=== PATIENT | female | born 1960 | race Caucasian/White ===

== ENCOUNTER 2016-06-16 18:00 | Emergency (ER) | payer OTHER ==
--- NOTE | 2016-06-16 20:28 | DIAGNOSTIC IMAGING REPORT ---
PROCEDURE: ABDOMEN/PELVIS WITH CONTRAST CLINICAL INDICATION: ABDOMINAL PAIN TECHNIQUE: 125 ml of Isovue 300 were injected intravenously and axial images were obtained of the abdomen and pelvis with sagittal and coronal reformations. COMPARISON: None. FINDINGS: ABDOMEN: Clear lung bases. Normal sized heart. No hiatal hernia. There are a few subcapsular scattered hepatic cysts. Largest measures 13.5 mm and is adjacent to the gallbladder. The liver, gallbladder, adrenal glands, kidneys, pancreas and spleen are normal. The abdominal aorta is normal in its course and caliber. No atherosclerosis. There are no suspicious calcifications, retroperitoneal adenopathy or masses. The stomach, upper small bowel loops, and mesentery are normal. Intact anterior abdominal wall. There is inflamed, impacted diverticulum in the mid descending colon. The adjacent left pericolic gutter fascia is thickened and there is adjacent fat stranding. No extraluminal gas or focal fluid collection. PELVIS: The appendix and pelvic small bowel loops are normal. There is an anastomotic staple line in the mid sigmoid of a prior partial sigmoidectomy. Decreased amount of semisolid stool present in the proximal colon. The uterus is surgically absent. The urinary bladder, and pelvic vessels are normal. No adenopathy, free fluid, or pelvic mass. Intact osseous structures. IMPRESSION: 1. Focal, acute, uncomplicated mid descending colon diverticulitis. 2. Status post partial sigmoidectomy and hysterectomy. 3. Hepatic cysts. 4. Findings called to the emergency room. All CT scans at this facility use dose modulation, iterative reconstruction, and/or weight-based dosing when appropriate to reduce radiation dose to as low as reasonably achievable.
--- NOTE | 2016-06-16 20:43 | ED ORDER SUMMARY ---
..... Patient: JEANNE TEJADA OrderSheet [facility] VisitID: [id number] [place] [address] 55y, F Registration Date/Time: 06/16/2016 ORDER SHEET Weight: 83.4 kg (stated) Allergies: Codeine GENERAL ORDERS: CBC w Diff Urgent (18:42 06/16/2016 JSanders R.N. per protocol) (Ack 18:44 KHoerner) (18:56 JSanders R.N.) CMP Urgent (18:42 06/16/2016 JSanders R.N. per protocol) (Ack 18:44 KHoerner) (18:56 JSanders R.N.) UA-Culture if indicated Urgent (18:42 06/16/2016 JSanders R.N. per protocol) (Ack 18:44 KHoerner) (18:56 JSanders R.N.) Amylase Urgent (18:42 06/16/2016 JSanders R.N. per protocol) (Ack 18:44 KHoerner) (18:56 JSanders R.N.) Lipase Urgent (18:42 06/16/2016 JSanders R.N. per protocol) (Ack 18:44 KHoerner) (18:56 JSanders R.N.) CT Abd/Pel w Cont (No) (See report) Urgent (19:17 06/16/2016 Sherley PHILLIPS) (Ack 19:18 KHoerner) (19:35 SRedmond) MEDICATION ORDERS: IV FLUIDS: IV Saline Lock (18:42 06/16/2016 JSanders R.N. per protocol) (18:42 JSanders R.N.) IV NS : initial bolus 1000 mL (1000 mL/hr), then 200 mL/hr for 4h (NOW); Urgent (18:50 06/16/2016 Sherley PHILLIPS) (19:03 JSanders R.N.) Dilaudid IV 0.5 mg (HIGH ALERT MEDICATION, NOW) (19:19 06/16/2016 Sherley PHILLIPS) (Ack 20:04 RCollier R.N.) (20:12 RCollier R.N.) Zofran IV 4 mg (NOW) (19:19 06/16/2016 Sherley PHILLIPS) (Ack 20:04 Saul Chapin) (20:13 Saul Chapin) ORDER SHEET NOTES: [Electronically signed by Mer Payton R.N. (21:00 06/16/2016)] [Electronically signed by Osmar Leggett MD (02:57 06/18/2016)] [Electronically locked/signed by Mer Payton R.N. (21:00 06/16/2016)]
--- NOTE | 2016-06-16 20:43 | ED CLINICAL REPORT ---
Clinical Report - Physicians/Mid Levels [facility] [address] [place] [address] 06/16/2016 18:00 Patient: JEANNE TEJADA Time Seen: 18:49. Arrived- By private vehicle. Historian- patient. HISTORY OF PRESENT ILLNESS Chief Complaint: LEFT FLANK PAIN. This started today and still present. It was abrupt in onset and has been constant and waxing/waning. The symptoms are described as severe. Modifying factors- worsened by movement and walking. (improves with a heating pad). The patient has had abdominal pain. The pain is described as located in the left side of the abdomen and left-sided flank pain. No pain with urination, urinary frequency or hematuria. Similar symptoms previously: Diagnosis: (diverticulits). REVIEW OF SYSTEMS No chills, fever, calf pain, chest pain or difficulty breathing. No pedal edema, palpitations, black stools, bloody stools or constipation. No nausea or vomiting. She has experienced sweats. She has had a cough (she attributes this to a recent URI). She has had moderate diarrhea (chronically). All systems otherwise negative, except as recorded above. PAST HISTORY ( PCP - Joo). Problems: Sick Contact. Diverticulitis. Additional Surgeries: Hysterectomy. 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 Medications: None. Allergies: Codeine. SOCIAL HISTORY Current every day heavy tobacco smoker (cigarette)- 1-2 packs per day. No alcohol use or drug use. Is a local resident. FAMILY HISTORY Diabetes in grandparent; premature onset heart disease in first-degree relative (father), grandparent. ADDITIONAL NOTES The nursing notes have been reviewed. PHYSICAL EXAM Vital Signs: 06/16/2016 18:25 BP: 147/87. HR: 96. RR: 18. O2 saturation: 96%. Temp: 98.3 F. Pain level now: 8/10. Have been reviewed. Appearance: Alert. No acute distress. ENT: Pharynx normal. Neck: Neck supple. CVS: Heart sounds normal. Respiratory: No respiratory distress. Breath sounds normal. Abdomen: Soft. Tenderness in the left side of the abdomen. Bowel sounds normal. No organomegaly. No mass. Back: Normal external inspection. No CVA tenderness. Skin: Skin warm and dry. Normal skin color. No rash. Normal skin turgor. Extremities: Extremities nontender. No calf tenderness. No lower extremity edema. LABS, X-RAYS, AND EKG Abdominal CT: IMPRESSION: 1. Focal, acute, uncomplicated mid descending colon diverticulitis. 2. Status post partial sigmoidectomy and hysterectomy. 3. Hepatic cysts. The study was interpreted contemporaneously by me and discussed with the radiologist. Laboratory Tests: UA-Culture if indicated: (HORACE: 06/16/2016 18:25) ( [facility] 06/16/2016 18:56) Final results Test Result Flag Units (Reference) URINE COLOR STRAW URINE APPEARANCE CLEAR URINE GLUCOSE NEGATIVE (NEGATIVE) URINE BILIRUBIN NEGATIVE (NEGATIVE) URINE KETONE NEGATIVE (NEGATIVE) URINE SPECIFIC GRAVITY >= 1.030 (1.010-1.030) URINE PH 5.0 (5.0-8.0) URINE PROTEIN NEGATIVE (NEGATIVE) URINE UROBILINOGEN 0.2 EU/dL (0.2-1.0) URINE NITRITE NEGATIVE (NEGATIVE) URINE BLOOD 3+ (NEGATIVE) URINE LEUK ESTERASE NEGATIVE (NEGATIVE) URINE RBC 0-1 rbc/hpf (0-1) URINE WBC 0-1 wbc/hpf (0-1) URINE EPITHELIAL CELLS 3-5 EPI/hpf (0-5) URINE BACTERIA TRACE (<1+) (NONE SEEN) URINE COMMENT CULT NOT INDICATED 1+ MUCOUS. 25-50 CALCIUM OXALATE CRYSTALS.URINE CULTURES ARE SET-UP BASED ON THE FOLLOWING CRITERIA:POSITIVE NITRITEPOSITIVE LEUKOCYTE ESTERASEGREATER THAN 10 WHITE BLOOD CELLSMODERATE (2+) OR GREATER BACTERIA CBC w Diff: (HORACE: 06/16/2016 18:40) ( [facility] 06/16/2016 18:47) Final results Test Result Flag Units (Reference) WHITE BLOOD COUNT 15.0 H K/uL (4.5-11.5) RED BLOOD COUNT 4.98 M/uL (4.00-5.20) HEMOGLOBIN 14.8 gm/dL (12.0-16.0) HEMATOCRIT 43.5 % (36.0-46.0) MEAN CELL VOLUME 87 fL (80-100) MEAN CORPUSCULAR HGB 30 pg (26-34) MEAN CORPUSCULAR HGB CONC 34 g/dL (31-37) RED CELL DISTRIBUTION WIDTH 13.1 % (11.6-14.8) PLATELET COUNT 318 K/uL (150-400) NEUTROPHIL % 70.0 % (50-75) LYMPH % 22.5 L % (25-40) MONO % 5.6 % (3-14) EOSINOPHIL % 1.1 % (0-4) BASOPHIL % 0.8 % (0-2) CMP: (HORACE: 06/16/2016 18:40) ( MsgRcvd 06/16/2016 19:18) Final results Test Result Flag Units (Reference) GLUCOSE 124 H mg/dL (70-110) BUN 10 mg/dL (7-18) CREATININE 0.8 mg/dL (0.6-1.3) Estimated GFR >60 mL/min Estimated GFR- >60 mL/min Note: Persistent reduction over 3 months in eGFR<60 mL/min/1.73 m2 defines CKD. Patients with eGFR values>=60 mL/min/1.73 m2 may also have CKD if evidence ofpersistent proteinuria. Additional information may be foundat www.kidney.org. SODIUM 138 mmol/L (136-145) POTASSIUM 3.6 mmol/L (3.5-5.1) CHLORIDE 102 mmol/L (98-107) CARBON DIOXIDE 25 mmol/L (21-32) CALCIUM 9.5 mg/dL (8.5-10.1) TOTAL PROTEIN 7.6 g/dL (6.4-8.2) ALBUMIN 3.6 g/dL (3.3-5.0) BILIRUBIN, TOTAL 0.4 mg/dL (0.0-1.0) ALKALINE PHOSPHATASE 84 U/L (46-116) AST (SGOT) 17 U/L (15-37) ALT (SGPT) 24 U/L (12-78) LIPASE 366 U/L (73-393) AMYLASE 78 U/L (25-115) . PROGRESS AND PROCEDURES Course of Care: Patient is stable. Patient/family counseled. Old medical records reviewed. Disposition: Discharged. Condition: stable. CLINICAL IMPRESSION Acute diverticulitis of the colon. INSTRUCTIONS No driving or operating machinery while taking medication. Sedative medication was given during your visit. Drink plenty of fluids. Warnings: Further evaluation is necessary. GENERAL WARNINGS: Return or contact your physician immediately if your condition worsens or changes unexpectedly, if not improving as expected, or if other problems arise. Prescription Medications: Hydrocodone/APAP 5mg/325mg: take 1 to 2 orally every 6 hours as needed for pain. Dispense fifteen (15). No refills. Zofran 4 mg: Take 1 orally every six hours as needed for nausea/vomiting. Dispense ten (10). No refills. Substitution is permissible. Flagyl 500 mg: Take 1 tablet orally every 8 hours for 10 days. No refill. Substitution is permissible Cipro 500 mg: take 1 tab orally every 12 hours for 10 days. Dispense twenty (20). No refills. Substitution is permissible. Understanding of the discharge instructions verbalized by patient and family. Follow-up with: Jennifer Ge PA-C, [facility], , [facility], [address] [place] [address], [place] [address] Follow up tomorrow. Call for an appointment. (Electronically signed by Osmar Leggett MD 06/18/2016 2:57)
--- NOTE | 2016-06-16 20:43 | ED ORDER SUMMARY ---
..... Patient: JEANNE TEJADA OrderSheet [facility] VisitID: [id number] [place] [address] 55y, F Registration Date/Time: 06/16/2016 ORDER SHEET Weight: 83.4 kg (stated) Allergies: Codeine GENERAL ORDERS: CBC w Diff Urgent (18:42 06/16/2016 JSanders R.N. per protocol) (Ack 18:44 KHoerner) (18:56 JSanders R.N.) CMP Urgent (18:42 06/16/2016 JSanders R.N. per protocol) (Ack 18:44 KHoerner) (18:56 JSanders R.N.) UA-Culture if indicated Urgent (18:42 06/16/2016 JSanders R.N. per protocol) (Ack 18:44 KHoerner) (18:56 JSanders R.N.) Amylase Urgent (18:42 06/16/2016 JSanders R.N. per protocol) (Ack 18:44 KHoerner) (18:56 JSanders R.N.) Lipase Urgent (18:42 06/16/2016 JSanders R.N. per protocol) (Ack 18:44 KHoerner) (18:56 JSanders R.N.) CT Abd/Pel w Cont (No) (See report) Urgent (19:17 06/16/2016 Sherley PHILLIPS) (Ack 19:18 KHoerner) (19:35 SRedmond) MEDICATION ORDERS: IV FLUIDS: IV Saline Lock (18:42 06/16/2016 JSanders R.N. per protocol) (18:42 JSanders R.N.) IV NS : initial bolus 1000 mL (1000 mL/hr), then 200 mL/hr for 4h (NOW); Urgent (18:50 06/16/2016 Sherley PHILLIPS) (19:03 JSanders R.N.) Dilaudid IV 0.5 mg (HIGH ALERT MEDICATION, NOW) (19:19 06/16/2016 Sherley PHILLIPS) (Ack 20:04 RCollier R.N.) (20:12 RCollier R.N.) Zofran IV 4 mg (NOW) (19:19 06/16/2016 Sherley PHILLIPS) (Ack 20:04 Saul Chapin) (20:13 Saul Chapin) ORDER SHEET NOTES: [Electronically signed by Mer Payton R.N. (21:00 06/16/2016)] [Electronically signed by Omsar Leggett MD (02:57 06/18/2016)] [Electronically locked/signed by Mer Payton R.N. (21:00 06/16/2016)]
--- NOTE | 2016-06-16 20:43 | ED CLINICAL REPORT ---
Clinical Report - Physicians/Mid Levels [facility] [address] [place] [address] 06/16/2016 18:00 Patient: JEANNE TEJADA Time Seen: 18:49. Arrived- By private vehicle. Historian- patient. HISTORY OF PRESENT ILLNESS Chief Complaint: LEFT FLANK PAIN. This started today and still present. It was abrupt in onset and has been constant and waxing/waning. The symptoms are described as severe. Modifying factors- worsened by movement and walking. (improves with a heating pad). The patient has had abdominal pain. The pain is described as located in the left side of the abdomen and left-sided flank pain. No pain with urination, urinary frequency or hematuria. Similar symptoms previously: Diagnosis: (diverticulits). REVIEW OF SYSTEMS No chills, fever, calf pain, chest pain or difficulty breathing. No pedal edema, palpitations, black stools, bloody stools or constipation. No nausea or vomiting. She has experienced sweats. She has had a cough (she attributes this to a recent URI). She has had moderate diarrhea (chronically). All systems otherwise negative, except as recorded above. PAST HISTORY ( PCP - Joo). Problems: Sick Contact. Diverticulitis. Additional Surgeries: Hysterectomy. 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 Medications: None. Allergies: Codeine. SOCIAL HISTORY Current every day heavy tobacco smoker (cigarette)- 1-2 packs per day. No alcohol use or drug use. Is a local resident. FAMILY HISTORY Diabetes in grandparent; premature onset heart disease in first-degree relative (father), grandparent. ADDITIONAL NOTES The nursing notes have been reviewed. PHYSICAL EXAM Vital Signs: 06/16/2016 18:25 BP: 147/87. HR: 96. RR: 18. O2 saturation: 96%. Temp: 98.3 F. Pain level now: 8/10. Have been reviewed. Appearance: Alert. No acute distress. ENT: Pharynx normal. Neck: Neck supple. CVS: Heart sounds normal. Respiratory: No respiratory distress. Breath sounds normal. Abdomen: Soft. Tenderness in the left side of the abdomen. Bowel sounds normal. No organomegaly. No mass. Back: Normal external inspection. No CVA tenderness. Skin: Skin warm and dry. Normal skin color. No rash. Normal skin turgor. Extremities: Extremities nontender. No calf tenderness. No lower extremity edema. LABS, X-RAYS, AND EKG Abdominal CT: IMPRESSION: 1. Focal, acute, uncomplicated mid descending colon diverticulitis. 2. Status post partial sigmoidectomy and hysterectomy. 3. Hepatic cysts. The study was interpreted contemporaneously by me and discussed with the radiologist. Laboratory Tests: UA-Culture if indicated: (HORACE: 06/16/2016 18:25) ( [facility] [place] 18[place]56) Final results Test Result Flag Units (Reference) URINE COLOR STRAW URINE APPEARANCE CLEAR URINE GLUCOSE NEGATIVE (NEGATIVE) URINE BILIRUBIN NEGATIVE (NEGATIVE) URINE KETONE NEGATIVE (NEGATIVE) URINE SPECIFIC GRAVITY >= 1.030 (1.010-1.030) URINE PH 5.0 (5.0-8.0) URINE PROTEIN NEGATIVE (NEGATIVE) URINE UROBILINOGEN 0.2 EU/dL (0.2-1.0) URINE NITRITE NEGATIVE (NEGATIVE) URINE BLOOD 3+ (NEGATIVE) URINE LEUK ESTERASE NEGATIVE (NEGATIVE) URINE RBC 0-1 rbc/hpf (0-1) URINE WBC 0-1 wbc/hpf (0-1) URINE EPITHELIAL CELLS 3-5 EPI/hpf (0-5) URINE BACTERIA TRACE (<1+) (NONE SEEN) URINE COMMENT CULT NOT INDICATED 1+ MUCOUS. 25-50 CALCIUM OXALATE CRYSTALS.URINE CULTURES ARE SET-UP BASED ON THE FOLLOWING CRITERIA:POSITIVE NITRITEPOSITIVE LEUKOCYTE ESTERASEGREATER THAN 10 WHITE BLOOD CELLSMODERATE (2+) OR GREATER BACTERIA CBC w Diff: (HORACE: 06/16/2016 18:40) ( [facility] [place] 18:47) Final results Test Result Flag Units (Reference) WHITE BLOOD COUNT 15.0 H K/uL (4.5-11.5) RED BLOOD COUNT 4.98 M/uL (4.00-5.20) HEMOGLOBIN 14.8 gm/dL (12.0-16.0) HEMATOCRIT 43.5 % (36.0-46.0) MEAN CELL VOLUME 87 fL (80-100) MEAN CORPUSCULAR HGB 30 pg (26-34) MEAN CORPUSCULAR HGB CONC 34 g/dL (31-37) RED CELL DISTRIBUTION WIDTH 13.1 % (11.6-14.8) PLATELET COUNT 318 K/uL (150-400) NEUTROPHIL % 70.0 % (50-75) LYMPH % 22.5 L % (25-40) MONO % 5.6 % (3-14) EOSINOPHIL % 1.1 % (0-4) BASOPHIL % 0.8 % (0-2) CMP: (HORACE: 06/16/2016 18:40) ( MsgRcvd 06/16/2016 19:18) Final results Test Result Flag Units (Reference) GLUCOSE 124 H mg/dL (70-110) BUN 10 mg/dL (7-18) CREATININE 0.8 mg/dL (0.6-1.3) Estimated GFR >60 mL/min Estimated GFR- >60 mL/min Note: Persistent reduction over 3 months in eGFR<60 mL/min/1.73 m2 defines CKD. Patients with eGFR values>=60 mL/min/1.73 m2 may also have CKD if evidence ofpersistent proteinuria. Additional information may be foundat www.kidney.org. SODIUM 138 mmol/L (136-145) POTASSIUM 3.6 mmol/L (3.5-5.1) CHLORIDE 102 mmol/L (98-107) CARBON DIOXIDE 25 mmol/L (21-32) CALCIUM 9.5 mg/dL (8.5-10.1) TOTAL PROTEIN 7.6 g/dL (6.4-8.2) ALBUMIN 3.6 g/dL (3.3-5.0) BILIRUBIN, TOTAL 0.4 mg/dL (0.0-1.0) ALKALINE PHOSPHATASE 84 U/L (46-116) AST (SGOT) 17 U/L (15-37) ALT (SGPT) 24 U/L (12-78) LIPASE 366 U/L (73-393) AMYLASE 78 U/L (25-115) . PROGRESS AND PROCEDURES Course of Care: Patient is stable. Patient/family counseled. Old medical records reviewed. Disposition: Discharged. Condition: stable. CLINICAL IMPRESSION Acute diverticulitis of the colon. INSTRUCTIONS No driving or operating machinery while taking medication. Sedative medication was given during your visit. Drink plenty of fluids. Warnings: Further evaluation is necessary. GENERAL WARNINGS: Return or contact your physician immediately if your condition worsens or changes unexpectedly, if not improving as expected, or if other problems arise. Prescription Medications: Hydrocodone/APAP 5mg/325mg: take 1 to 2 orally every 6 hours as needed for pain. Dispense fifteen (15). No refills. Zofran 4 mg: Take 1 orally every six hours as needed for nausea/vomiting. Dispense ten (10). No refills. Substitution is permissible. Flagyl 500 mg: Take 1 tablet orally every 8 hours for 10 days. No refill. Substitution is permissible Cipro 500 mg: take 1 tab orally every 12 hours for 10 days. Dispense twenty (20). No refills. Substitution is permissible. Understanding of the discharge instructions verbalized by patient and family. Follow-up with: Jennifer Ge PA-C, [facility] [place] [place], , [facility], [address] [place] [address], [place] [address] Follow up tomorrow. Call for an appointment. (Electronically signed by Osmar Leggett MD 06/18/2016 2:57)
--- NOTE | 2016-06-16 20:43 | ED NURSING NOTES ---
Clinical Report - Nurses [facility] [address] [place] [address] 06/16/2016 18:00 Patient: JEANNE TEJADA TRIAGE Triage time 18:Jun 16 2016. Acuity: LEVEL 3. Chief Complaint: ABDOMINAL PAIN and (Left flank pain started this morning around 1000). 18:32 06/16/16. SEPSIS SCREEN: Sepsis Screen. Negative (no infection suspected/documented). ANDI COMA SCORE: [place] Coma Scale: 15- eyes open spontaneously (4); best verbal response- oriented x 4 (5); best motor response- obeys commands (6). --18:32 Radhika Lazaro R.N. 18:25 06/16/16. BP: 147/87 (regular adult cuff) taken on the left arm, while sitting. HR: 96. RR: 18. O2 saturation: 96% on room air. Temp: 98.3 F (oral). Pain level now: 10/02. --18:32 Radhika Lazaro R.N. Weight: 83.4 kg stated. Height/Length: 66 inches Per Patient. BMI: 29.7. --18:27 Radhika Lazaro R.N. Medications None. --18:27 Radhika Lazaro R.N. Allergies Codeine. --18:27 Radhika Lazaro R.N. History Arrived by private vehicle. Historian: patient. Accompanied by friend. Primary physician (Dr Ridley). This started today. Last oral intake by patient was dinner (last night). Treatment [employer]: (Tums, Gasex, stool softners). PAST MEDICAL HX: The patient has had a hysterectomy. SOCIAL HX: Current every day heavy tobacco smoker (cigarette)- 1-2 packs per day. No alcohol use or drug use. She has had contact with a sick relative. No infectious disease exposure. ABUSE ASSESSMENT: No report of abuse. --18:32 Radhika Lazaro R.N. PROBLEMS: Diverticulitis. --18:28 Radhika Lazaro R.N. ADDITIONAL SURGERIES: Hysterectomy. 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 --18:28 Radhika Lazaro R.N. Interventions ID band on patient. To treatment room. --18:32 Radhika Lazaro R.N. PHYSICAL ASSESSMENT 18:33 06/16/16. Ambulatory to room. GENERAL / NEURO / PSYCH: Alert. Oriented X 4. Appears in pain. HEENT: Mucous membranes are pink. RESPIRATORY: Respirations not labored. Breath sounds within normal limits. CVS: Capillary refill less than 2 seconds. GI / : Abdomen soft. Guarding present. Bowel sounds within normal limits. No nausea noted. No emesis noted. Stool color normal. SKIN: Skin is warm. --18:33 Radhika Lazaro R.N. NURSING PROGRESS NOTES 18:34 06/16/16. The plan of care for this patient has been created. Monitoring of patient in place. Patient gowned. Head of bed elevated. Reassurance given. Two patient identifiers checked. Call light placed in reach. Side rails up x 2. Bed placed in lowest position. Brakes of bed on. Patient ready for evaluation- chart flagged and ED physician notified. --18:34 Radhika Lazaro R.N. 18:42 06/16/2016 Site #1 started via IV in the right antecubital space with an 20g angiocath, with aseptic technique and good blood return; one attempt. Blood drawn: rainbow set. Labeled in the presence of the patient and sent to the lab. Saline lock flushed with 10 mL saline. --18:42 Radhika Lazaro R.N. 19:02 06/16/16. BP: 118/62 (regular adult cuff) taken on the left arm, while sitting. HR: 93. RR: 18 (regular). O2 saturation: 100% on room air. Pain level now: 09/01. --19:03 Radhika Lazaro R.N. 19:03 06/16/2016 Started bag #1 1000 mL IV Fluids IV NS (Saline); bolus of 1000 mL over 1 hour(s) then at 1000 mL/hr over 1 hour(s) via site #1 via IV pump. Allergies verified and confirmed 5 rights. IV patency established. IV site checked: no pain, redness, or swelling. IV flushed thoroughly pre- and post-medication administration. --19:03 Radhika Lazaro R.N. 19:03 06/16/16. ( Patients needed reposition and her pain is a little better). --19:03 Radhika Lazaro R.N. 19:07 06/16/16. Care transferred and report given (Mer POLANCO). --19:07 Radhika Lazaro R.N. Care transferred and report received (Radhika POLANCO assumed care). --19:12 Mer Payton R.N. 20:05 06/16/16. Pain level now: 09/01. --20:12 Candace Cooper R.N. 20:08 06/16/2016 Dilaudid (HYDROmorphone HCl PF) IVP 0.5 mg given over 1 minute(s) via site #1. Allergies verified, confirmed 5 rights and sedative warning given to the patient. IV patency established. IV site checked: no pain, redness, or swelling. IV flushed thoroughly pre- and post-medication administration. IVP given by RN. --20:12 Candace Cooper R.N. 20:11 06/16/2016 Zofran (Ondansetron HCl) IVP 4 mg given over 30 second(s) via site #1. Allergies verified and confirmed 5 rights. IV patency established. IV site checked: no pain, redness, or swelling. IV flushed thoroughly pre- and post-medication administration. IVP given by RN. --20:13 Candace Cooper R.N. 20:14 06/16/16. BP: 125/77 taken on the left arm, while lying. HR: 84. RR: 16 (regular, unlabored and normal). O2 saturation: 95% on room air. Temp: deferred. Pain level now: 09/01. --20:16 Mer Payton R.N. 20:03 06/16/2016 IV Fluids IV NS Discontinued: bag #1 completed. Total amount infused: 1000 mL. IV patency established. IV site checked: no pain, redness, or swelling. IV flushed thoroughly. --20:58 Mer Payton R.N. 20:03 06/16/2016 IV Saline Lock Drip IV Discontinued: bag #1 completed. Total amount infused: 1000 mL. IV patency established. IV site checked: no pain, redness, or swelling. IV flushed thoroughly. --20:58 Mer Payton R.N. 20:53 06/16/2016 Site #1 removed upon discharge. Catheter intact. Manual pressure and bandage applied. --20:58 Mer Payton R.N. DISPOSITION / DISCHARGE Departure time: 2052. Condition at departure: improved and stable. No learning barriers present. Discharge instructions provided and reviewed with the patient. Reviewed medication(s) side effects, precautions, dosing and course information. Prescription(s) given to the patient. Work note given. Patient verbalized understanding. Written instructions provided in [place]. The patient was discharged by the physician. She was discharged home and accompanied by spouse. She left the Emergency Department ambulatory and via private vehicle. Patient driving. --21:00 Mer Payton R.N. 20:59 06/16/16. BP: 116/74 taken on the left arm, while sitting. HR: 81. RR: 18. O2 saturation: 97%. Temp: deferred. Pain level now: 0/10. --21:00 Mer Payton R.N. Locked/Released at 06/16/2016 21:00 by Mer Payton R.N.
--- NOTE | 2016-06-18 02:57 | ED MAR SUMMARY ---
..... Medication Administration Record [facility] [address] [place] [address] Patient: JEANNE TEJDAA Visit ID: [id number] 55y, F Weight: 83.4 kg Height/Length: 66 in BMI: 29.7 ALLERGIES: Codeine Start 19:03 06/16/2016 Radhika Lazaro R.N., Stop 20:06/16/2016 Mer Payton R.N. Medication Administered: IV NS (SALINE), Dose: IV Fluids over 1 hour(s), Rate: 1000 mL/hr, Bolus: 1000 mL over 1 hour(s), Dispensed: 1000 mL bag, Site: #1 right AC. Medication Ordered: IV NS : initial bolus 1000 mL (1000 mL/hr), then 200 mL/hr for 4h (NOW); Urgent. Given 20:08 06/16/2016 Candace Cooper R.N. Medication Administered: DILAUDID [IVP] (HYDROMORPHONE HCL PF), Dose: 0.5 mg IVP over 1 minute(s), Site: #1 right AC. Medication Ordered: Dilaudid IV 0.5 mg (HIGH ALERT MEDICATION, NOW). Given 20:11 06/16/2016 Candace Cooper R.N. Medication Administered: ZOFRAN [IVP] (ONDANSETRON HCL), Dose: 4 mg IVP over 30 second(s), Site: #1 right AC. Medication Ordered: Zofran IV 4 mg (NOW).
--- NOTE | 2016-06-18 02:57 | ED MED RECONCILIATION SUMMARY ---
Patient: JEANNE TEJADA Medication Reconciliation Report [facility] VisitID: [id number] [address] [place] [address] 55y, F Registration Date/Time: 06/16/2016 Weight: 83.4 kg Height/Length: 66 in. BMI: 29.7 ALLERGIES: Codeine The patient's Home Medications are listed below: NONE. The source(s) of the original Home Medication information: Not obtained. The following Medications were given to the patient in the Emergency Department: IV NS IV Fluids bolus 1000 mL over 1 hour(s), then 1000 mL/hr, administered: 06/16/2016 7:03:00 PM Dilaudid [IVP] IVP 0.5 mg, administered: 06/16/2016 8:08:00 PM Zofran [IVP] IVP 4 mg, administered: 06/16/2016 8:11:00 PM The following Medications were prescribed to the patient: Hydrocodone/APAP 5mg/325mg: take 1 to 2 orally every 6 hours as needed for pain. Dispense fifteen (15). No refills. -- Osmar Leggett MD Zofran 4 mg: Take 1 orally every six hours as needed for nausea/vomiting. Dispense ten (10). No refills. Substitution is permissible. -- Osmar Leggett MD Flagyl 500 mg: Take 1 tablet orally every 8 hours for 10 days. No refill. Substitution is permissible -- Osmar Leggett MD Cipro 500 mg: take 1 tab orally every 12 hours for 10 days. Dispense twenty (20). No refills. Substitution is permissible. -- Osmar Leggett MD
--- NOTE | 2016-06-18 02:57 | ED DISCHARGE INSTRUCTIONS ---
Patient: JEANNE TEJADA General Instructions [facility] VisitID: [id number] [place] [address] 55y, F Registration Date/Time: 06/16/2016 Acute diverticulitis of the colon. INSTRUCTIONS No driving or operating machinery while taking medication. Sedative medication was given during your visit. Drink plenty of fluids. Warnings: Further evaluation is necessary. GENERAL WARNINGS: Return or contact your physician immediately if your condition worsens or changes unexpectedly, if not improving as expected, or if other problems arise. Prescription Medications: Hydrocodone/APAP 5mg/325mg: take 1 to 2 orally every 6 hours as needed for pain. Dispense fifteen (15). No refills. Zofran 4 mg: Take 1 orally every six hours as needed for nausea/vomiting. Dispense ten (10). No refills. Substitution is permissible. Flagyl 500 mg: Take 1 tablet orally every 8 hours for 10 days. No refill. Substitution is permissible Cipro 500 mg: take 1 tab orally every 12 hours for 10 days. Dispense twenty (20). No refills. Substitution is permissible. Understanding of the discharge instructions verbalized by patient and family. Follow-up with: Jennifer Ge PA-C, [facility], , [facility], [address] [place] [address], [place] [id number] Follow up tomorrow. Call for an appointment. ADDITIONAL INFORMATION Diverticulitis Some people develop pouches along the wall of the colon as they get older. The pouches,called diverticuli, usually cause no symptoms. If the pouches become blocked, an infection may occur known as diverticulitis. This causes lower abdominal pain and fever. If not treated, it can become a serious condition, causing an abscess to form inside the pouch. The abscess may block the instestinal tract even or rupture, spreading infection throughout the abdomen. When treatment is started early, oral antibiotics alone may be enough to cure diverticulitis. This method is tried first. However, if you do not improve or if your condition worsens while you are trying oral antibiotics, it will be necessary to admit you to the hospital for IV antibiotics. Severe cases may require surgery. Home care The following guidelines will help you care for your diverticulitis at home: During the acute illness, rest and follow a low-fiber diet: Foods to Include: flake cereal, mashed potatoes, pancakes, waffles, pasta, white bread, rice, applesauce, bananas, eggs, meat, fish, poultry, tofu, cooked vegetables. Take antibiotics exactly as directed. Do not miss any doses or stop taking the medication, even if you feel better. Monitor your temperature and report any rising temperature to your doctor. Preventing future attacks Once you have had an episode of diverticulitis, you are at risk of having a recurrence. After you have recovered from this episode, you may be able to reduce your risk by eating a high-fiber diet (2035 gm/day of fiber). This cleans out the colon pouches that already exist and prevent new ones from forming. Foods high in fiber includes fresh fruits and edible peelings, raw or lightly cooked vegetables, whole grain cereals and breads, dried beans and peas, bran. Follow-up care Follow up with your doctor as advised or sooner if you are not improving in the nexttwo days. When to seek medical care Get prompt medical attention if any of the following occur: Fever of 100.4F (38C) or higher, or as directed by your health care provider Repeated vomiting or swelling of the abdomen Weakness, dizziness, light-headedness Increasing abdominal pain that becomes severe or spreads to your back Pain that moves to the right lower abdomen Rectal bleeding (red, black or maroon color of the stools) Unexpected vaginal bleeding Hydrocodone Bitartrate, Acetaminophen Oral tablet What is this medicine? ACETAMINOPHEN; HYDROCODONE (a set a JASMIN mame fen; fidel droe KOE done) is a pain reliever. It is used to treat mild to moderate pain. How should I use this medicine? Take this medicine by mouth. Swallow it with a full glass of water. Follow the directions on the prescription label. If the medicine upsets your stomach, take the medicine with food or milk. Do not take more than you are told to take. Talk to your defective cigarette slitter regarding the use of this medicine in children. This medicine is not approved for use in children. What side effects may I notice from receiving this medicine? Side effects that you should report to your doctor or health manager critical care as soon as possible: allergic reactions like skin rash, itching or hives, swelling of the face, lips, or tongue breathing problems confusion feeling faint or lightheaded, falls stomach pain yellowing of the eyes or skin Side effects that usually do not require medical attention (report to your doctor or health manager critical care if they continue or are bothersome): nausea, vomiting stomach upset What may interact with this medicine? alcohol antihistamines isoniazid medicines for depression, anxiety, or psychotic disturbances medicines for sleep muscle relaxants naltrexone narcotic medicines (opiates) for pain phenobarbital ritonavir tramadol What if I miss a dose? If you miss a dose, take it as soon as you can. If it is almost time for your next dose, take only that dose. Do not take double or extra doses. Where should I keep my medicine? Keep out of the reach of children. This medicine can be abused. Keep your medicine in a safe place to protect it from theft. Do not share this medicine with anyone. Selling or giving away this medicine is dangerous and against the law. Store at room temperature between 15 and 30 degrees C (59 and 86 degrees F). Protect from light. Keep container tightly closed. Throw away any unused medicine after the expiration date. Discard unused medicine and used packaging carefully. Pets and children can be harmed if they find used or lost packages. What should I tell my health care provider before I take this medicine? They need to know if you have any of these conditions: brain tumor Crohn's disease, inflammatory bowel disease, or ulcerative colitis drink more than 3 alcohol-containing drinks per day drug abuse or addiction head injury heart or circulation problems kidney disease or problems going to the bathroom liver disease lung disease, asthma, or breathing problems an unusual or allergic reaction to acetaminophen, hydrocodone, other opioid analgesics, other medicines, foods, dyes, or preservatives or trying to get breast-feeding What should I watch for while using this medicine? Tell your doctor or health manager critical care if your pain does not go away, if it gets worse, or if you have new or a different type of pain. You may develop tolerance to the medicine. Tolerance means that you will need a higher dose of the medicine for pain relief. Tolerance is normal and is expected if you take the medicine for a long time. Do not suddenly stop taking your medicine because you may develop a severe reaction. Your body becomes used to the medicine. This does NOT mean you are addicted. Addiction is a behavior related to getting and using a drug for a non-medical reason. If you have pain, you have a medical reason to take pain medicine. Your doctor will tell you how much medicine to take. If your doctor wants you to stop the medicine, the dose will be slowly lowered over time to avoid any side effects. You may get drowsy or dizzy when you first start taking the medicine or change doses. Do not drive, use machinery, or do anything that may be dangerous until you know how the medicine affects you. Stand or sit up slowly. There are different types of narcotic medicines (opiates) for pain. If you take more than one type at the same time, you may have more side effects. Give your health care provider a list of all medicines you use. Your doctor will tell you how much medicine to take. Do not take more medicine than directed. Call emergency for help if you have problems breathing. The medicine will cause constipation. Try to have a bowel movement at least every 2 to 3 days. If you do not have a bowel movement for 3 days, call your doctor or health manager critical care. Too much acetaminophen can be very dangerous. Do not take Tylenol (acetaminophen) or medicines that contain acetaminophen with this medicine. Many non-prescription medicines contain acetaminophen. Always read the labels carefully. Ondansetron Oral disintegrating tablet What is this medicine? ONDANSETRON (on TYRONE se tarcie) is used to treat nausea and vomiting caused by chemotherapy. It is also used to prevent or treat nausea and vomiting after surgery. How should I use this medicine? These tablets are made to dissolve in the mouth. Do not try to push the tablet through the foil backing. With dry hands, peel away the foil backing and gently remove the tablet. Place the tablet in the mouth and allow it to dissolve, then swallow. While you may take these tablets with water, it is not necessary to do so. Talk to your defective cigarette slitter regarding the use of this medicine in children. Special care may be needed. What side effects may I notice from receiving this medicine? Side effects that you should report to your doctor or health manager critical care as soon as possible: allergic reactions like skin rash, itching or hives, swelling of the face, lips, or tongue breathing problems dizziness fast or irregular heartbeat feeling faint or lightheaded, falls fever and chills swelling of the hands and feet tightness in the chest Side effects that usually do not require medical attention (report to your doctor or health manager critical care if they continue or are bothersome): constipation or diarrhea headache What may interact with this medicine? Do not take this medicine with any of the following medications: -apomorphine -cisapride -dofetilide -dronedarone -pimozide -thioridazine -ziprasidone This medicine may also interact with the following medications: -carbamazepine -phenytoin -rifampicin -tramadol -other medicines that prolong the QT interval (cause an abnormal heart rhythm) What if I miss a dose? If you miss a dose, take it as soon as you can. If it is almost time for your next dose, take only that dose. Do not take double or extra doses. Where should I keep my medicine? Keep out of the reach of children. Store between 2 and 30 degrees C (36 and 86 degrees F). Throw away any unused medicine after the expiration date. What should I tell my health care provider before I take this medicine? They need to know if you have any of these conditions: heart disease history of irregular heartbeat liver disease low levels of magnesium or potassium in the blood an unusual or allergic reaction to ondansetron, granisetron, other medicines, foods, dyes, or preservatives or trying to get breast-feeding What should I watch for while using this medicine? Check with your doctor or health manager critical care as soon as you can if you have any sign of an allergic reaction. Metronidazole Oral tablet What is this medicine? METRONIDAZOLE (me johnsone NI da zolradha) is an antiinfective. It is used to treat certain kinds of bacterial and protozoal infections. It will not work for colds, flu, or other viral infections. How should I use this medicine? Take this medicine by mouth with a full glass of water. Follow the directions on the prescription label. Take your medicine at regular intervals. Do not take your medicine more often than directed. Take all of your medicine as directed even if you think you are better. Do not skip doses or stop your medicine early. Talk to your defective cigarette slitter regarding the use of this medicine in children. Special care may be needed. What side effects may I notice from receiving this medicine? Side effects that you should report to your doctor or health manager critical care as soon as possible: allergic reactions like skin rash or hives, swelling of the face, lips, or tongue confusion, clumsiness difficulty speaking discolored or sore mouth dizziness fever, infection numbness, tingling, pain or weakness in the hands or feet trouble passing urine or change in the amount of urine redness, blistering, peeling or loosening of the skin, including inside the mouth seizures unusually weak or tired vaginal irritation, dryness, or discharge Side effects that usually do not require medical attention (report to your doctor or health manager critical care if they continue or are bothersome): diarrhea headache irritability metallic taste nausea stomach pain or cramps trouble sleeping What may interact with this medicine? Do not take this medicine with any of the following medications: alcohol or any product that contains alcohol amprenavir oral solution cisapride disulfiram dofetilide dronedarone paclitaxel injection pimozide ritonavir oral solution sertraline oral solution sulfamethoxazole-trimethoprim injection thioridazine ziprasidone This medicine may also interact with the following medications: cimetidine lithium other medicines that prolong the QT interval (cause an abnormal heart rhythm) phenobarbital phenytoin warfarin What if I miss a dose? If you miss a dose, take it as soon as you can. If it is almost time for your next dose, take only that dose. Do not take double or extra doses. Where should I keep my medicine? Keep out of the reach of children. Store at room temperature below 25 degrees C (77 degrees F). Protect from light. Keep container tightly closed. Throw away any unused medicine after the expiration date. What should I tell my health care provider before I take this medicine? They need to know if you have any of these conditions: anemia or other blood disorders disease of the nervous system fungal or yeast infection if you drink alcohol containing drinks liver disease seizures an unusual or allergic reaction to metronidazole, or other medicines, foods, dyes, or preservatives or trying to get breast-feeding What should I watch for while using this medicine? Tell your doctor or health manager critical care if your symptoms do not improve or if they get worse. You may get drowsy or dizzy. Do not drive, use machinery, or do anything that needs mental alertness until you know how this medicine affects you. Do not stand or sit up quickly, especially if you are an older patient. This reduces the risk of dizzy or fainting spells. Avoid alcoholic drinks while you are taking this medicine and for three days afterward. Alcohol may make you feel dizzy, sick, or flushed. If you are being treated for a sexually transmitted disease, avoid sexual contact until you have finished your treatment. Your sexual partner may also need treatment. Ciprofloxacin Hydrochloride Oral tablet What is this medicine? CIPROFLOXACIN (sip issa FLOX a sin) is a quinolone antibiotic. It is used to treat certain kinds of bacterial infections. It will not work for colds, flu, or other viral infections. How should I use this medicine? Take this medicine by mouth with a glass of water. Follow the directions on the prescription label. Take your medicine at regular intervals. Do not take your medicine more often than directed. Take all of your medicine as directed even if you think your are better. Do not skip doses or stop your medicine early. You can take this medicine with food or on an empty stomach. It can be taken with a meal that contains dairy or calcium, but do not take it alone with a dairy product, like milk or yogurt or calcium-fortified juice. A special MedGuide will be given to you by the pharmacist with each prescription and refill. Be sure to read this information carefully each time. Talk to your defective cigarette slitter regarding the use of this medicine in children. Special care may be needed. What side effects may I notice from receiving this medicine? Side effects that you should report to your doctor or health manager critical care as soon as possible: - allergic reactions like skin rash, itching or hives, swelling of the face, lips, or tongue - breathing problems - confusion, nightmares or hallucinations - feeling faint or lightheaded, falls - irregular heartbeat - joint, muscle or tendon pain or swelling - pain or trouble passing urine -persistent headache with or without blurred vision - redness, blistering, peeling or loosening of the skin, including inside the mouth - seizure - unusual pain, numbness, tingling, or weakness Side effects that usually do not require medical attention (report to your doctor or health manager critical care if they continue or are bothersome): - diarrhea - nausea or stomach upset - white patches or sores in the mouth What may interact with this medicine? Do not take this medicine with any of the following medications: cisapride droperidol terfenadine tizanidine This medicine may also interact with the following medications: antacids caffeine cyclosporin didanosine (ddI) buffered tablets or powder medicines for diabetes medicines for inflammation like ibuprofen, naproxen methotrexate multivitamins omeprazole phenytoin probenecid sucralfate theophylline warfarin What if I miss a dose? If you miss a dose, take it as soon as you can. If it is almost time for your next dose, take only that dose. Do not take double or extra doses. Where should I keep my medicine? Keep out of the reach of children. Store at room temperature below 30 degrees C (86 degrees F). Keep container tightly closed. Throw away any unused medicine after the expiration date. What should I tell my health care provider before I take this medicine? They need to know if you have any of these conditions: -bone problems -cerebral disease -joint problems -irregular heartbeat -kidney disease -liver disease -myasthenia gravis -seizure disorder -tendon problems -an unusual or allergic reaction to ciprofloxacin, other antibiotics or medicines, foods, dyes, or preservatives - or trying to get -breast-feeding What should I watch for while using this medicine? Tell your doctor or health manager critical care if your symptoms do not improve. Do not treat diarrhea with over the counter products. Contact your doctor if you have diarrhea that lasts more than 2 days or if it is severe and watery. You may get drowsy or dizzy. Do not drive, use machinery, or do anything that needs mental alertness until you know how this medicine affects you. Do not stand or sit up quickly, especially if you are an older patient. This reduces the risk of dizzy or fainting spells. This medicine can make you more sensitive to the sun. Keep out of the sun. If you cannot avoid being in the sun, wear protective clothing and use sunscreen. Do not use sun lamps or tanning beds/booths. Avoid antacids, aluminum, calcium, iron, magnesium, and zinc products for 6 hours before and 2 hours after taking a dose of this medicine. You have been given the following additional information: Diverticulitis Hydrocodone Bitartrate, Acetaminophen Oral tablet Ondansetron Oral disintegrating tablet Metronidazole Oral tablet Ciprofloxacin Hydrochloride Oral tablet No driving or operating machinery while taking medication. Sedative medication was given during your visit. (Electronically signed by Osmar Leggett MD 06/18/2016 2:57)
--- NOTE | 2016-06-18 02:57 | ED MED RECONCILIATION SUMMARY ---
Patient: JEANNE TEJADA Medication Reconciliation Report [facility] VisitID: [id number] [address] [place] [address] 55y, F Registration Date/Time: 06/16/2016 Weight: 83.4 kg Height/Length: 66 in. BMI: 29.7 ALLERGIES: Codeine The patient's Home Medications are listed below: NONE. The source(s) of the original Home Medication information: Not obtained. The following Medications were given to the patient in the Emergency Department: IV NS IV Fluids bolus 1000 mL over 1 hour(s), then 1000 mL/hr, administered: 06/16/2016 7:03:00 PM Dilaudid [IVP] IVP 0.5 mg, administered: 06/16/2016 8:08:00 PM Zofran [IVP] IVP 4 mg, administered: 06/16/2016 8:11:00 PM The following Medications were prescribed to the patient: Hydrocodone/APAP 5mg/325mg: take 1 to 2 orally every 6 hours as needed for pain. Dispense fifteen (15). No refills. -- Osmar Leggett MD Zofran 4 mg: Take 1 orally every six hours as needed for nausea/vomiting. Dispense ten (10). No refills. Substitution is permissible. -- Osmar Leggett MD Flagyl 500 mg: Take 1 tablet orally every 8 hours for 10 days. No refill. Substitution is permissible -- Osmar Leggett MD Cipro 500 mg: take 1 tab orally every 12 hours for 10 days. Dispense twenty (20). No refills. Substitution is permissible. -- Osmar Leggett MD
--- NOTE | 2016-06-18 02:57 | ED MAR SUMMARY ---
..... Medication Administration Record [facility] [address] [address] Patient: JEANNE TEJADA Visit ID: [id number] 55y, F Weight: 83.4 kg Height/Length: 66 in BMI: 29.7 ALLERGIES: Codeine Start 19:03 06/16/2016 Radhika Lazaro R.N., Stop 20:06/16/2016 Mer Payton R.N. Medication Administered: IV NS (SALINE), Dose: IV Fluids over 1 hour(s), Rate: 1000 mL/hr, Bolus: 1000 mL over 1 hour(s), Dispensed: 1000 mL bag, Site: #1 right AC. Medication Ordered: IV NS : initial bolus 1000 mL (1000 mL/hr), then 200 mL/hr for 4h (NOW); Urgent. Given 20:08 06/16/2016 Candace Cooper R.N. Medication Administered: DILAUDID [IVP] (HYDROMORPHONE HCL PF), Dose: 0.5 mg IVP over 1 minute(s), Site: #1 right AC. Medication Ordered: Dilaudid IV 0.5 mg (HIGH ALERT MEDICATION, NOW). Given 20:11 06/16/2016 Candace Cooper R.N. Medication Administered: ZOFRAN [IVP] (ONDANSETRON HCL), Dose: 4 mg IVP over 30 second(s), Site: #1 right AC. Medication Ordered: Zofran IV 4 mg (NOW).
== END 2016-06-16 20:53 | disposition home or self-care (01) ==
LOC: ED SRH 18:00
DX: K57.32 Diverticulitis of large intestine without perforation or abscess without bleeding (principal); F17.200 Nicotine dependence, unspecified, uncomplicated; Z88.5 Allergy status to narcotic agent
CPT/HCPCS: 90004; 90100; 92235; 92530; 95059

== ENCOUNTER 2016-08-05 09:01 | Emergency (ER) | payer OTHER ==
--- NOTE | 2016-08-05 10:31 | DIAGNOSTIC IMAGING REPORT ---
PROCEDURE: XR KNEE 4 VIEWS - LEFT INDICATION: TRAUMA/INJURY TECHNIQUE: Four views. COMPARISON: None. FINDINGS: Osseous structures and joint spaces are normal. IMPRESSION: 1. Normal left knee.
--- NOTE | 2016-08-05 10:56 | ED NURSING NOTES ---
Clinical Report - Nurses [facility] [address] [place] [address] 08/05/2016 9:02 Patient: JEANNE TEJADA TRIAGE Triage time 09:37. Chief Complaint: LEFT LOWER EXTREMITY PAIN. SEPSIS SCREEN: Sepsis Screen. Negative (no infection suspected/documented). --09:44 Ibeth Storey R.N. 09:37 08/05/16. BP: 107/65 taken on the left arm, while lying. HR: 76. RR: 16. O2 saturation: 99%. Temp: 97.8 F. Pain level now: 10/02. --09:44 Ibeth Storey R.N. Weight: 82.5 kg stated. Height/Length: 66 inches Per Patient. BMI: 29.4. --09:44 Ibeth Storey R.N. Medications None. --09:40 Ibeth Storey R.N. Allergies Codeine. --09:40 Ibeth Storey R.N. History Arrived by private vehicle. Historian: patient. Accompanied by friend. Primary physician (Jennifer Tesfaye). This occurred last night. ( States she was sitting at her desk, went to spin chair and hit her knee on the corner of the desk. Hurt so bad she thought she was going to throw up.). Treatment REHAB CARE ASSISTANT: Ice. PAST MEDICAL HX: Immunizations: up-to-date. SOCIAL HX: Heavy tobacco smoker- 1-2 packs per day. Occasional alcohol use. No drug use. No infectious disease exposure. SELF HARM ASSESSMENT: A self harm assessment was performed. The patient answered "no" to the question "Do you have thoughts of harming or killing yourself?". FALL RISK ASSESSMENT: Fall risk assessment completed. No fall risk identified. NUTRITIONAL RISK ASSESSMENT: The nutritional risk assessment revealed no deficiencies. FUNCTIONAL ASSESSMENT: Functional assessment: no impairments noted. LEARNING NEEDS ASSESSMENT: The learning needs assessment revealed no barriers. SKIN INTEGRITY ASSESSMENT: Skin integrity risk assessment completed. No skin integrity risk identified. --09:44 Ibeth Storey R.N. PROBLEMS: Sick Contact. Diverticulitis. --09:40 Ibeth Storey R.N. ADDITIONAL SURGERIES: Hysterectomy. 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 --09:41 Ibeth Storey R.N. Interventions ID band on patient. To room. --09:44 Ibeth Storey R.N. PHYSICAL ASSESSMENT To room via wheelchair. GENERAL / NEURO / PSYCH: Oriented X 4. Alert. Appears in no acute distress. EXTREMITIES: Left knee: tenderness. SKIN: Skin intact. Skin is warm and dry. --09:45 Ibeth Storey R.N. NURSING PROGRESS NOTES Reassurance given. Two patient identifiers checked. Call light placed in reach. Bed placed in lowest position. Brakes of bed on. Patient ready for evaluation- chart flagged and ED physician notified. --09:45 Ibeth Storey R.N. 10:10 08/05/2016 Toradol (Ketorolac Tromethamine) IM 60 mg given. Given in the right gluteus nayan. --10:10 Ibeth Storey R.N. Patient transported to radiology by stretcher with [employer]. --10:15 Ibeth Storey R.N. DISPOSITION / DISCHARGE 11:08/05/16. Condition at departure: improved. The goals identified in the patient's plan of care were met. No learning barriers present. Discharge instructions provided and reviewed with porcelain slusher and the patient. Reviewed warnings. Reviewed medication(s). Treatments reviewed. Patient and porcelain slusher verbalized understanding. Written instructions provided in Georgian. The patient was discharged by the physician. She was discharged home and accompanied by family. She left the Emergency Department ambulatory and via private vehicle. Family member driving. FALL RISK ASSESSMENT: Fall risk assessment completed. No fall risk identified. --11:06 Cheikh Horton R.N. 11:05 08/05/16. BP: 108/73. HR: 78. RR: 18. O2 saturation: 98% on room air. Temp: 98.2 F (oral). Pain level now: 08/02. --11:06 Cheikh Horton R.N. 11:06 08/05/16. Departure time: 11:Aug 05 2016. --11:06 Cheikh Horton R.N. Locked/Released at 08/05/2016 11:14 by Cheikh Horton R.N.
--- NOTE | 2016-08-05 10:56 | ED NURSING NOTES ---
Clinical Report - Nurses [facility] [address] [place] [address] 08/05/2016 9:02 Patient: JEANNE TEJADA TRIAGE Triage time 09:37. Chief Complaint: LEFT LOWER EXTREMITY PAIN. SEPSIS SCREEN: Sepsis Screen. Negative (no infection suspected/documented). --09:44 Ibeth Storey R.N. 09:37 08/05/16. BP: 107/65 taken on the left arm, while lying. HR: 76. RR: 16. O2 saturation: 99%. Temp: 97.8 F. Pain level now: 10/02. --09:44 Ibeth Storey R.N. Weight: 82.5 kg stated. Height/Length: 66 inches Per Patient. BMI: 29.4. --09:44 Ibeth Storey R.N. Medications None. --09:40 Ibeth Storey R.N. Allergies Codeine. --09:40 Ibeth Storey R.N. History Arrived by private vehicle. Historian: patient. Accompanied by friend. Primary physician (Jennifer Tesfaye). This occurred last night. ( States she was sitting at her desk, went to spin chair and hit her knee on the corner of the desk. Hurt so bad she thought she was going to throw up.). Treatment FISH ICER: Ice. PAST MEDICAL HX: Immunizations: up-to-date. SOCIAL HX: Heavy tobacco smoker- 1-2 packs per day. Occasional alcohol use. No drug use. No infectious disease exposure. SELF HARM ASSESSMENT: A self harm assessment was performed. The patient answered "no" to the question "Do you have thoughts of harming or killing yourself?". FALL RISK ASSESSMENT: Fall risk assessment completed. No fall risk identified. NUTRITIONAL RISK ASSESSMENT: The nutritional risk assessment revealed no deficiencies. FUNCTIONAL ASSESSMENT: Functional assessment: no impairments noted. LEARNING NEEDS ASSESSMENT: The learning needs assessment revealed no barriers. SKIN INTEGRITY ASSESSMENT: Skin integrity risk assessment completed. No skin integrity risk identified. --09:44 Ibeth Storey R.N. PROBLEMS: Sick Contact. Diverticulitis. --09:40 Ibeth Storey R.N. ADDITIONAL SURGERIES: Hysterectomy. 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 --09:41 Ibeth Storey R.N. Interventions ID band on patient. To room. --09:44 Ibeth Storey R.N. PHYSICAL ASSESSMENT To room via wheelchair. GENERAL / NEURO / PSYCH: Oriented X 4. Alert. Appears in no acute distress. EXTREMITIES: Left knee: tenderness. SKIN: Skin intact. Skin is warm and dry. --09:45 Ibeth Storey R.N. NURSING PROGRESS NOTES Reassurance given. Two patient identifiers checked. Call light placed in reach. Bed placed in lowest position. Brakes of bed on. Patient ready for evaluation- chart flagged and ED physician notified. --09:45 Ibeth Storey R.N. 10:10 08/05/2016 Toradol (Ketorolac Tromethamine) IM 60 mg given. Given in the right gluteus nayan. --10:10 Ibeth Storey R.N. Patient transported to radiology by stretcher with [employer]. --10:15 Ibeth Storey R.N. DISPOSITION / DISCHARGE 11:08/05/16. Condition at departure: improved. The goals identified in the patient's plan of care were met. No learning barriers present. Discharge instructions provided and reviewed with power system dispatcher and the patient. Reviewed warnings. Reviewed medication(s). Treatments reviewed. Patient and power system dispatcher verbalized understanding. Written instructions provided in Romansh. The patient was discharged by the physician. She was discharged home and accompanied by family. She left the Emergency Department ambulatory and via private vehicle. Family member driving. FALL RISK ASSESSMENT: Fall risk assessment completed. No fall risk identified. --11:06 Cheikh Horton R.N. 11:05 08/05/16. BP: 108/73. HR: 78. RR: 18. O2 saturation: 98% on room air. Temp: 98.2 F (oral). Pain level now: 08/02. --11:06 Cheikh Horton R.N. 11:06 08/05/16. Departure time: 11:Aug 05 2016. --11:06 Cheikh Horton R.N. Locked/Released at 08/05/2016 11:14 by Cheikh Horton R.N.
--- NOTE | 2016-08-05 10:56 | ED ORDER SUMMARY ---
..... Patient: JEANNE TEJADA OrderSheet [facility] VisitID: [id number] [address] [place] [address] 56y, F Registration Date/Time: 08/05/2016 ORDER SHEET Weight: 82.5 kg (stated) Allergies: Codeine GENERAL ORDERS: Knee 4V Left Urgent (10:08/05/2016 Maryanne Elam) (Ack 10:04 LNations ER Tech1) (11:02 LNations ER Tech1) MEDICATION ORDERS: Toradol IM 60 mg (NOW) (10:02 08/05/2016 Maryanne Elam) (10:10 Cecile R.N.) IV FLUIDS: ORDER SHEET NOTES: [Electronically signed by Cheikh Horton R.N. (11:14 08/05/2016)] [Electronically signed by Gopi Mcgill Dr. (08:39 08/07/2016)] [Electronically locked/signed by Cheikh Horton R.N. (11:14 08/05/2016)]
--- NOTE | 2016-08-05 10:56 | ED ORDER SUMMARY ---
..... Patient: JEANNE TEJADA OrderSheet [facility] VisitID: [id number] [address] [place] [address] 56y, F Registration Date/Time: 08/05/2016 ORDER SHEET Weight: 82.5 kg (stated) Allergies: Codeine GENERAL ORDERS: Knee 4V Left Urgent (10:08/05/2016 Maryanne Elam) (Ack 10:04 LNations ER Tech1) (11:02 LNations ER Tech1) MEDICATION ORDERS: Toradol IM 60 mg (NOW) (10:02 08/05/2016 Maryanne Elam) (10:10 Cecile R.N.) IV FLUIDS: ORDER SHEET NOTES: [Electronically signed by Cheikh Horton R.N. (11:14 08/05/2016)] [Electronically signed by Gopi Mcgill Dr. (08:39 08/07/2016)] [Electronically locked/signed by Cheikh Horton R.N. (11:14 08/05/2016)]
--- NOTE | 2016-08-05 10:56 | ED CLINICAL REPORT ---
Clinical Report - Physicians/Mid Levels [facility] [address] [place] [address] 08/05/2016 9:02 Patient: JEANNE TEJADA Time Seen: 09:38; initial patient contact. Arrived- By private vehicle. Historian- patient. HISTORY OF PRESENT ILLNESS Chief Complaint: Injury to left knee. The injury happened last night. Occurred at home. The patient sustained a moderate direct blow- kicked furniture. Patient is experiencing moderate pain. Patient denies injury to the head or neck. REVIEW OF SYSTEMS The patient complains of pain on weight bearing. No swelling, tingling, weakness, numbness or skin laceration. All systems otherwise negative, except as recorded above. PAST HISTORY ( Sick Contact. Diverticulitis. ADDITIONAL SURGERIES: Hysterectomy. 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 SOCIAL HISTORY Current every day smoker. Occasional alcohol use. No drug use. ADDITIONAL NOTES The nursing notes have been reviewed. PHYSICAL EXAM Vital Signs: 08/05/2016 09:37 BP: 107/65. HR: 76. RR: 16. O2 saturation: 99%. Temp: 97.8 F. Pain level now: 8/10. Have been reviewed as normal. Appearance: Alert. Oriented X3. No acute distress. Skin: Skin warm and dry. Normal skin color. Extremities: Left knee: mild erythema and moderate tenderness located in the patella. Limited ROM secondary to pain (diminished flexion and extension). Neurovascular intact distally. No joint effusion. No swelling, laceration, abrasion, ecchymosis or puncture wound. No deformity. Lower extremity exam otherwise negative. Extremities otherwise negative. Gait: Limping gait. Neuro, Vascular and Tendons: Vascular status intact. Sensation intact. Motor intact. Tendon function intact. Neuro: Oriented X 3. No motor deficit. LABS, X-RAYS, AND EKG Lt Knee X-ray: No fracture. Normal alignment. No bony lesion or foreign body. Soft tissues normal. Joint spaces normal. Views: AP, lateral and oblique. Technique: good. The X-rays were independently viewed by me and interpreted contemporaneously by me. Prior films were not available for comparison. Interpretation time: 10:52. PROGRESS AND PROCEDURES Disposition: Discharged home in good and improved condition. Condition: good. CLINICAL IMPRESSION Left knee contusion. INSTRUCTIONS Apply ice for four times a day until better. Don't apply ice directly to skin. Use crutches until better. You may walk and bear weight as tolerated. Your Current Medications: CONTINUE TAKING THE FOLLOWING MEDICATIONS: None*. Prescription Medications: Diclofenac 50 mg tablets: take 1 tablet orally every 8 hours as needed for pain or stiffness. Dispense thirty (30). No refill. Follow-up: Follow up with your doctor in two days if not better. Call for an appointment. Screening today revealed the patient's blood pressure to be in the normal range. (Electronically signed by Gopi Mcgill Dr. 08/07/2016 8:39)
--- NOTE | 2016-08-05 10:56 | ED CLINICAL REPORT ---
Clinical Report - Physicians/Mid Levels [facility] [address] [place] [place] [address] 08/05/2016 9:02 Patient: JEANNE TEJADA Time Seen: 09:38; initial patient contact. Arrived- By private vehicle. Historian- patient. HISTORY OF PRESENT ILLNESS Chief Complaint: Injury to left knee. The injury happened last night. Occurred at home. The patient sustained a moderate direct blow- kicked furniture. Patient is experiencing moderate pain. Patient denies injury to the head or neck. REVIEW OF SYSTEMS The patient complains of pain on weight bearing. No swelling, tingling, weakness, numbness or skin laceration. All systems otherwise negative, except as recorded above. PAST HISTORY ( Sick Contact. Diverticulitis. ADDITIONAL SURGERIES: Hysterectomy. 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 SOCIAL HISTORY Current every day smoker. Occasional alcohol use. No drug use. ADDITIONAL NOTES The nursing notes have been reviewed. PHYSICAL EXAM Vital Signs: 08/05/2016 09:37 BP: 107/65. HR: 76. RR: 16. O2 saturation: 99%. Temp: 97.8 F. Pain level now: 8/10. Have been reviewed as normal. Appearance: Alert. Oriented X3. No acute distress. Skin: Skin warm and dry. Normal skin color. Extremities: Left knee: mild erythema and moderate tenderness located in the patella. Limited ROM secondary to pain (diminished flexion and extension). Neurovascular intact distally. No joint effusion. No swelling, laceration, abrasion, ecchymosis or puncture wound. No deformity. Lower extremity exam otherwise negative. Extremities otherwise negative. Gait: Limping gait. Neuro, Vascular and Tendons: Vascular status intact. Sensation intact. Motor intact. Tendon function intact. Neuro: Oriented X 3. No motor deficit. LABS, X-RAYS, AND EKG Lt Knee X-ray: No fracture. Normal alignment. No bony lesion or foreign body. Soft tissues normal. Joint spaces normal. Views: AP, lateral and oblique. Technique: good. The X-rays were independently viewed by me and interpreted contemporaneously by me. Prior films were not available for comparison. Interpretation time: 10:52. PROGRESS AND PROCEDURES Disposition: Discharged home in good and improved condition. Condition: good. CLINICAL IMPRESSION Left knee contusion. INSTRUCTIONS Apply ice for four times a day until better. Don't apply ice directly to skin. Use crutches until better. You may walk and bear weight as tolerated. Your Current Medications: CONTINUE TAKING THE FOLLOWING MEDICATIONS: None*. Prescription Medications: Diclofenac 50 mg tablets: take 1 tablet orally every 8 hours as needed for pain or stiffness. Dispense thirty (30). No refill. Follow-up: Follow up with your doctor in two days if not better. Call for an appointment. Screening today revealed the patient's blood pressure to be in the normal range. (Electronically signed by Gopi Mcgill Dr. 08/07/2016 8:39)
--- NOTE | 2016-08-07 08:40 | ED MAR SUMMARY ---
..... Medication Administration Record [facility] [address] [place] [address] Patient: JEANNE TEJADA Visit ID: [id number] 56y, F Weight: 82.5 kg Height/Length: 66 in BMI: 29.4 ALLERGIES: Codeine Given 10:10 08/05/2016 Ibeth Storey R.N. Medication Administered: TORADOL [IM] (KETOROLAC TROMETHAMINE), Dose: 60 mg IM. Medication Ordered: Toradol IM 60 mg (NOW).
--- NOTE | 2016-08-07 08:40 | ED MED RECONCILIATION SUMMARY ---
Patient: JEANNE TEJADA Medication Reconciliation Report [facility] VisitID: [id number] [address] [place] [address] 56y, F Registration Date/Time: 08/05/2016 Weight: 82.5 kg Height/Length: 66 in. BMI: 29.4 ALLERGIES: Codeine The patient's Home Medications are listed below: NONE. The source(s) of the original Home Medication information: Not obtained. The following Medications were given to the patient in the Emergency Department: Toradol [IM] IM 60 mg, administered: 08/05/2016 10:10:00 AM The following Medications were prescribed to the patient: Diclofenac 50 mg tablets: take 1 tablet orally every 8 hours as needed for pain or stiffness. Dispense thirty (30). No refill. -- Gopi Mcgill Dr.
--- NOTE | 2016-08-07 08:40 | ED DISCHARGE INSTRUCTIONS ---
Patient: JEANNE TEJADA General Instructions [facility] VisitID: [id number] [address] [place] [address] 56y, F Registration Date/Time: 08/05/2016 Left knee contusion. INSTRUCTIONS Apply ice for four times a day until better. Don't apply ice directly to skin. Use crutches until better. You may walk and bear weight as tolerated. Your Current Medications: CONTINUE TAKING THE FOLLOWING MEDICATIONS: None*. Prescription Medications: Diclofenac 50 mg tablets: take 1 tablet orally every 8 hours as needed for pain or stiffness. Dispense thirty (30). No refill. Follow-up: Follow up with your doctor in two days if not better. Call for an appointment. Screening today revealed the patient's blood pressure to be in the normal range. ADDITIONAL INFORMATION Crutch Walking Crutch Adjustment Make sure the crutches you use are adjusted to fit you. When you stand, there should be room to fit 2-3 fingers between the top of the crutch and your armpit. Your elbow should be slightly bent when holding the hand traffic enumerator. Crutch Walking: Place the crutches forward 12" in front of and 6" to the side of your feet. Lean your weight forward as you push down on the handgrips. Your weight should be on your hands and yourstrong leg, not your armpits . Let your body swing through, landing on the strong leg. Advance the crutches forward again. The crutch and the injured leg should move together. Going Up Steps: ("Up with the good") With both crutches on the same step as your feet, push down on the handgrips. Balancing with very light pressure on the weak leg, let your hands support your weight as you raise your strong leg onto the next higher step. Transfer all your weight to your strong leg (still bent) as you move the crutches up to the next step alongside the strong leg. With your weight evenly balanced on the two crutches and your strong leg, straighten your strong knee as you raise the weak leg up to the next step. Going Down Steps: ("Down with the bad") With both crutches on the same step as your feet, push down on the handgrips. With your weight evenly balanced on the two crutches and your strong leg, bend your strong knee as you lower the weak leg down to the next step. Let your strong leg support you (still bent) as you move the crutches down alongside the weak leg. Transfer your weight to your hands, balancing with very light pressure on the weak leg as you lower your strong leg alongside your weak leg. You have been given the following additional information: Crutch Walking You may walk and bear weight as tolerated. (Electronically signed by Gopi Mcgill Dr. 08/07/2016 8:39)
--- NOTE | 2016-08-07 08:40 | ED MED RECONCILIATION SUMMARY ---
Patient: JEANNE TEJADA Medication Reconciliation Report [facility] VisitID: [id number] [address] [place] [address] 56y, F Registration Date/Time: 08/05/2016 Weight: 82.5 kg Height/Length: 66 in. BMI: 29.4 ALLERGIES: Codeine The patient's Home Medications are listed below: NONE. The source(s) of the original Home Medication information: Not obtained. The following Medications were given to the patient in the Emergency Department: Toradol [IM] IM 60 mg, administered: 08/05/2016 10:10:00 AM The following Medications were prescribed to the patient: Diclofenac 50 mg tablets: take 1 tablet orally every 8 hours as needed for pain or stiffness. Dispense thirty (30). No refill. -- Gopi Mcgill Dr.
--- NOTE | 2016-08-07 08:40 | ED DISCHARGE INSTRUCTIONS ---
Patient: JEANNE TEJADA General Instructions [facility] VisitID: [id number] [address] [place] [address] 56y, F Registration Date/Time: 08/05/2016 Left knee contusion. INSTRUCTIONS Apply ice for four times a day until better. Don't apply ice directly to skin. Use crutches until better. You may walk and bear weight as tolerated. Your Current Medications: CONTINUE TAKING THE FOLLOWING MEDICATIONS: None*. Prescription Medications: Diclofenac 50 mg tablets: take 1 tablet orally every 8 hours as needed for pain or stiffness. Dispense thirty (30). No refill. Follow-up: Follow up with your doctor in two days if not better. Call for an appointment. Screening today revealed the patient's blood pressure to be in the normal range. ADDITIONAL INFORMATION Crutch Walking Crutch Adjustment Make sure the crutches you use are adjusted to fit you. When you stand, there should be room to fit 2-3 fingers between the top of the crutch and your armpit. Your elbow should be slightly bent when holding the hand utility tender carding. Crutch Walking: Place the crutches forward 12" in front of and 6" to the side of your feet. Lean your weight forward as you push down on the handgrips. Your weight should be on your hands and yourstrong leg, not your armpits . Let your body swing through, landing on the strong leg. Advance the crutches forward again. The crutch and the injured leg should move together. Going Up Steps: ("Up with the good") With both crutches on the same step as your feet, push down on the handgrips. Balancing with very light pressure on the weak leg, let your hands support your weight as you raise your strong leg onto the next higher step. Transfer all your weight to your strong leg (still bent) as you move the crutches up to the next step alongside the strong leg. With your weight evenly balanced on the two crutches and your strong leg, straighten your strong knee as you raise the weak leg up to the next step. Going Down Steps: ("Down with the bad") With both crutches on the same step as your feet, push down on the handgrips. With your weight evenly balanced on the two crutches and your strong leg, bend your strong knee as you lower the weak leg down to the next step. Let your strong leg support you (still bent) as you move the crutches down alongside the weak leg. Transfer your weight to your hands, balancing with very light pressure on the weak leg as you lower your strong leg alongside your weak leg. You have been given the following additional information: Crutch Walking You may walk and bear weight as tolerated. (Electronically signed by Gopi Mcgill Dr. 08/07/2016 8:39)
--- NOTE | 2016-08-07 08:40 | ED MAR SUMMARY ---
..... Medication Administration Record [facility] [address] [place] [address] Patient: JEANNE TEJADA Visit ID: [id number] 56y, F Weight: 82.5 kg Height/Length: 66 in BMI: 29.4 ALLERGIES: Codeine Given 10:10 08/05/2016 Ibeth Storey R.N. Medication Administered: TORADOL [IM] (KETOROLAC TROMETHAMINE), Dose: 60 mg IM. Medication Ordered: Toradol IM 60 mg (NOW).
== END 2016-08-05 11:06 | disposition home or self-care (01) ==
LOC: ED SRH 09:01
DX: S80.02XA Contusion of left knee, initial encounter (principal); W22.03XA Walked into furniture, initial encounter; Y93.89 Activity, other specified; Y92.019 Unspecified place in single-family (private) house as the place of occurrence of the external cause; Y99.8 Other external cause status; F17.210 Nicotine dependence, cigarettes, uncomplicated; Z88.5 Allergy status to narcotic agent